=== PATIENT | male | born 2000 | race American Indian/Alaskan Native ===

== ENCOUNTER 2019-08-07 07:31 | Emergency (ER) | payer SELFPAY ==
[2019-08-07 07:37] VITALS: BP 134/83
--- NOTE | 2019-08-07 08:08 | Emergency Department Report ---
Chief Complaint: Urogenital-Male Stated Complaint: STD CHECK/DISCHARGE/PAIN Time Seen by Provider: 08/07/19 07:43 - HPI History of Present Illness: This is a 19-year-old male nontoxic, well nourished in appearance, no acute signs of distress presents to the ED for a STD check. Patient stated has intermittent small amount of white colored penile discharge. Patient denies any testicular pain or swelling. Patient denies any penile ulcers or lesions. Patient denies any nausea, vomiting, chest pain, shortness of breathe, fever, chills, headache, back pain, numbness, tingling, stiff neck. Patient denies any urinary symptoms. Patient denies any allergies or PMH. - Exam Vital Signs: Vital Signs 08/07/19 07:36 Temperature 99.2 F Pulse Rate 94 H Respiratory 18 Rate Blood Pressure 134/83 [Left] O2 Sat by Pulse 98 Oximetry Physical Exam: GENERAL: The patient is a well-developed, well-nourished in no apparent distress. Patient is alert and acting appropriately for age. Alert and oriented 3, no apparent distress, normal gait, atraumatic. ABDOMEN: Soft, nontender, and nondistended. Positive bowel sounds. No hepatosplenomegaly was noted. No guarding or rebound tenderness, negative epigastric bruit. Negative psoas sign, negative gillette sign, negative McBurneys sign No flank pain or back pains. [facility] screening note: Focused history and physical exam performed. Due to findings the following was ordered: ED Medical Decision Making - Medical Decision Making This is a 19-year-old male that presents with nonmedical emergency. Patient is stable and was examined by me. Patient is [facility]-stay. UA obtained and urinary culutre and GA pendning. Patient received Rocepine and Azith in ED for possible STD. Was instructed to return and 3 to 5 days for gonorrhea chlamydia results. Patient is currently asymptomatic and denies any symptoms. Patient states he just wants to be tested for STD. I will refer the patient [facility] and health Department. At time of discharge, the patient does not seem toxic or ill in appearance. No acute signs of distress noted. Patient agrees to discharge treatment plan of care. No further questions noted by the patient. ED Disposition for [facility] Clinical Impression: Possible exposure to STD UTI (urinary tract infection) Qualifiers: Urinary tract infection type: acute cystitis Hematuria presence: without hemat uria Qualified Code(s): N30.00 - Acute cystitis without hematuria Disposition: MED SCREENING EXAM-CONT Is pt being admited?: No Does the pt Need Aspirin: No Condition: Stable Instructions: Safe Sex (ED), Urinary Tract Infection in Men (ED) Additional Instructions: Follow-up with a primary care doctor in 3-5 days or if symptoms worsen and continue return to emergency room as soon as possible. Return in 3 to 5 days for gonorrhea and Chlamydia results. Prescriptions: Sulfamethoxazole/Trimethoprim [Bactrim DS TAB] 1 each PO BID #14 tablet Referrals: PRIMARY CAREMD [Primary Care Provider] - 3-5 Days STEPHIE LOZOYA MD [Staff Physician] - 3-5 Days [facility] [Provider Group] - 3-5 Days Forms: Work/School Release Form(ED)
[2019-08-07 09:54] LABS: Bilirubin,Urine NEG (Negative); Blood,Urine NEG (Negative); Color,Urine Yellow (Yellow); Mucus,Urine FEW /HPF; Protein,Urine <15 mg/dL mg/dL (Negative); Urobilinogen,Urine < 2.0 mg/dL (<2.0)
[2019-08-07 09:55] LABS: WBC,Urine > 182.0 /HPF (0.0-6.0)
[2019-08-07] MEDS ORDERED: LIDOCAINE-MPF (1%) 10 MG/1 ML VIAL 5 ML INFILTRATI ONE (10:17)
[2019-08-07] MEDS ORDERED: AZITHROMYCIN 250 MG TAB PO ONE (10:17)
== END 2019-08-07 10:32 | disposition home or self-care (01) ==
LOC: ED 07:31
DX: N39.0 Urinary tract infection, site not specified (principal); Z20.2 Contact with and (suspected) exposure to infections with a predominantly sexual mode of transmission
CPT/HCPCS: 81001; 87086; 99283